=== PATIENT | female | born 1945 | race Caucasian/White ===

== ENCOUNTER 2016-12-10 01:31 | Emergency (ER) | payer MEDICARE, BC ==
[~2016-12-10] VITALS: Ht 167.6 cm; Wt 76.2 kg
[~2016-12-10 01:31] MED LIST: ATOR20TA PO; BUPR100T99 PO
[2016-12-10] MEDS ORDERED: ALBUTEROL FS 2.5 MG/3 ML VIAL.NEB ONE ×2 (01:41→02:42)
[2016-12-10] MEDS ORDERED: IPRATROPIUM NEB FS 0.5 MG/2.5 ML AMPUL.NEB ONE (01:41)
[2016-12-10] MEDS ORDERED: DEXAMETHASONE SOD PHOSPHATE 4 MG/ML VIAL ONE (01:43)
[2016-12-10] MEDS ORDERED: ASPIRIN 81 MG TAB.CHEW ONE (01:43)
[2016-12-10] MEDS ORDERED: DEXAMETHASONE SOD PHOSPHATE 10 MG/ML VIAL ONE (01:44)
[2016-12-10] MEDS ORDERED: ASPI81TA2 PO (01:51)
[2016-12-10] MEDS ORDERED: METOPROLOL (01:51)
[2016-12-10] MEDS ORDERED: ESCI10TA PO (01:51)
[2016-12-10] MEDS ORDERED: DEXAMETHASONE SOD PHOSPHATE 10 MG/ML VIAL IV ONE (02:00)
[2016-12-10] MEDS ORDERED: ALBUTEROL FS 2.5 MG/3 ML VIAL.NEB CONTNEB ONE (02:00)
[2016-12-10] MEDS ORDERED: ASPIRIN 81 MG TAB.CHEW PO ONE (02:00)
[2016-12-10] MEDS ORDERED: IPRATROPIUM NEB FS 0.5 MG/2.5 ML AMPUL.NEB NEB ONE (02:00)
[2016-12-10 02:07] LABS: BASOPHILS % (AUTO) 0.5 % (0.0-2.0); DIFF TOTAL % 100 %; EOSINOPHILS # (AUTO) 0.6 /CMM (0.0-0.7); EOSINOPHILS % (AUTO) 6.6 % (0.0-6.0); HEMATOCRIT 37 % (33-45); LYMPHOCYTES # (AUTO) 3.2 /CMM (0.8-4.8); LYMPHOCYTES % (AUTO) 34.8 % (20.0-44.0); MEAN CORPUSCULAR HEMOGLOBIN 26 PG (26.0-33.0); MEAN CORPUSCULAR HGB CONC 32 g/dl (31.0-36.0); MEAN CORPUSCULAR VOLUME 81 fL (82-100); MONOCYTES # (AUTO) 0.7 /CMM (0.1-1.30); MONOCYTES % (AUTO) 7.3 % (2.0-12.0); NEUTROPHILS # (AUTO) 4.6 /CMM (1.8-8.9); NEUTROPHILS % (AUTO) 50.8 % (43.0-81.0); PLATELET COUNT (AUTO) 217 /CMM (150-450); RED BLOOD CELL COUNT(AUTO) 4.64 MIL/uL (4.0-5.2); WHITE BLOOD COUNT (AUTO) 9.1 K/uL (4.3-11.0)
[2016-12-10 02:21] LABS: ANION GAP 11 (5-14); CALCIUM, SERUM 8.7 mg/dL (8.5-10.1); CARBON DIOXIDE 30 mmol/L (21-32); CHLORIDE 108 mmol/L (98-107); CREATININE 0.9 mg/dL (0.6-1.3); GFR 62 mL/min (>60); GLUCOSE 119 mg/dL (74-106); POTASSIUM 4.1 mmol/L (3.5-5.1); SODIUM SERUM 144 mmol/L (136-145); UREA NITROGEN, BLOOD 16 mg/dL (7-18)
[2016-12-10 02:26] LABS: INR 0.94 (0.87-1.13); PROTHROMBIN TIME 10.1 SECS (9.5-12.7)
[2016-12-10 02:29] LABS: TROPONIN I < 0.017 ng/mL (0.00-0.056)
[2016-12-10] MEDS ORDERED: AZITHROMYCIN 250 MG TABLET PO ONE (02:30)
[2016-12-10] MEDS ORDERED: AZITHROMYCIN 250 MG TABLET ONE (02:38)
[2016-12-10] MEDS ORDERED: ALBUTEROL FS 2.5 MG/3 ML VIAL.NEB NEB ONE (03:00)
[2016-12-10] MEDS ORDERED: ACETAMINOPHEN 325 MG TABLET PO ONE (03:00)
[2016-12-10] MEDS ORDERED: ACETAMINOPHEN ES 500 MG TABLET ONE (03:01)
[2016-12-10 03:11] VITALS: BP 127/75
== END 2016-12-10 03:11 | disposition home or self-care (01) ==
LOC: ER 01:33
DX: J44.1 Chronic obstructive pulmonary disease with (acute) exacerbation (principal); F41.9 Anxiety disorder, unspecified
CPT/HCPCS: 36415; 71010-TC; 80048-TC; 83880; 84484-TC; 85025-TC; 85610-TC; 87400; A4606; J1100; Z7610

== ENCOUNTER 2017-08-31 16:03 | Emergency (ER) | payer MEDICARE, BC ==
[~2017-08-31] VITALS: Ht 160 cm; Wt 81.6 kg
[~2017-08-31 16:03] MED LIST changes: +ASPI81TA2 PO; +ESCI10TA PO; +METOPROLOL
--- NOTE | 2017-08-31 16:21 | NUR ---
BIB DTR DT S/P SLIP AND FALL IN THE BATHROOM, C/O RLE PAIN 04/26,A GE, PATIENT ABLE ELENA WEIGHT HOWEVER WITH DISCOMFORT. VSS
--- NOTE | 2017-08-31 16:22 | NUR ---
MD COULTER AT
--- NOTE | 2017-08-31 16:53 | NUR ---
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
[2017-08-31 17:41] VITALS: BP 118/70
--- NOTE | 2017-08-31 17:41 | NUR ---
Patient discharged to home in stable condition. Written and verbal after care instructions given. Patient verbalizes understanding of instruction.
== END 2017-08-31 17:42 | disposition home or self-care (01) ==
LOC: ER 16:06
DX: S80.11XA Contusion of right lower leg, initial encounter (principal); I10 Essential (primary) hypertension; J45.909 Unspecified asthma, uncomplicated; E78.5 Hyperlipidemia, unspecified; F41.9 Anxiety disorder, unspecified; G47.00 Insomnia, unspecified; Z79.82 Long term (current) use of aspirin; W01.0XXA Fall on same level from slipping, tripping and stumbling without subsequent striking against object, initial encounter; Y93.89 Activity, other specified; Y92.89 Other specified places as the place of occurrence of the external cause; Y99.8 Other external cause status
CPT/HCPCS: 29505; 73564; 73590; 99284; A4606; Z7610